=== PATIENT | male | born 2005 | race Two or more races ===

== ENCOUNTER 2024-05-19 09:44 | Emergency (ER) | payer OTHER ==
[~2024-05-19] VITALS: Ht 180.3 cm; Wt 95.0 kg
[2024-05-19 09:49] VITALS: BP 128/71; PULSE 77; RESP 16; TEMP 98.3
[2024-05-19] MEDS: DiphenhydrAMINE HCL 25 MG CAPSULE PO ONE (11:14)
[2024-05-19] MEDS: PredniSONE 20 MG TABLET PO ONE (11:14)
[2024-05-19] MEDS ORDERED: PRED-554 PO (11:47)
[2024-05-19] MEDS ORDERED: DIPH25TA51 PO (11:49)
== END 2024-05-19 12:45 | disposition home or self-care (01) ==
LOC: EMS 09:44
DX: L25.9 Unspecified contact dermatitis, unspecified cause (principal)
CPT/HCPCS: 99283; J7512